=== PATIENT | male | born 1950 | race African-American/Black ===

== ENCOUNTER 2020-11-20 01:13 | Emergency (ER) | payer OTHER ==
[~2020-11-20] VITALS: Ht 188 cm; Wt 115.7 kg
[2020-11-20] MEDS ORDERED: amLODIPine BESYLATE 5 MG TAB PO ONE (01:30)
[2020-11-20] MEDS ORDERED: hydrALAZINE HCL 20 MG/ML VL IV ONE ×2 (01:45→02:30)
[2020-11-20] MEDS ORDERED: MORPHINE SULFATE 4 MG/ML SYR/VIAL IV ONE (02:15)
[2020-11-20] MEDS ORDERED: ONDANSETRON HCL 4 MG/2 ML VIAL IV ONE (02:15)
[2020-11-20 02:25] LABS: Basophils # (auto) 0 10 ^3/uL (0-0.2); Basophils % (auto) 0.3 % (0.0-2.0); Eosinophils # (auto) 0 10 ^3/uL (0-0.8); Eosinophils % (auto) 0.1 % (0.0-7.0); Hematocrit 44.1 % (41.0-53.0); Hemoglobin 14.8 g/dL (13.5-17.5); Lymphocytes % (auto) 13.2 % (10.0-50.0); Mean Corpuscular Hemoglobin 31.1 pg (28.0-32.0); Mean Corpuscular Hgb Conc. 33.6 g/dL (32.0-36.0); Mean Corpuscular Volume 92.4 fL (80.0-100.0); Monocytes # (auto) 0.2 10 ^3/uL (0-1.3); Monocytes % (auto) 2.3 % (0.0-12.0); Neutrophils # (auto) 6.2 10 ^3/uL (1.6-8.6); Neutrophils % (auto) 84.1 % (37.0-80.0); Platelet Count (auto) 168 10^3/uL (140-450); Red Blood Cells 4.77 10^6/uL (4.5-5.90); Red Cell Distribution Width 14.4 % (11.8-14.3); White Blood Cell 7.3 10^3/uL (4.4-10.8)
[2020-11-20 02:51] LABS: Alanine Aminotransferase 60 U/L (16-61); Albumin 4.2 g/dL (3.4-5.0); Anion Gap 12 (5-15); Aspartate Aminotransferase 46 U/L (15-37); BUN/Creatinine Ratio 13.7; Blood Urea Nitrogen 16 mg/dL (7-18); Calcium 8.8 mg/dL (8.5-10.1); Carbon Dioxide 21 mmol/L (21-32); Chloride 108 mmol/L (98-107); GFR African American 79 mL/min; GFR Non-African American 65 mL/min; Glucose 201 mg/dL (74-106); Lipase 529 U/L (73-393); Potassium 3.4 mmol/L (3.5-5.1); Sodium 141 mmol/L (136-145)
[2020-11-20 02:56] LABS: Alkaline Phosphatase 56 U/L (45-117); Bilirubin, Total 0.6 mg/dL (0.2-1.0)
[2020-11-20 04:45] LABS: Urine Amorphous Crystal FEW /hpf (None Seen); Urine Bacteria NONE SEEN /hpf (None Seen); Urine Blood TRACE /uL (Negative); Urine Specific Gravity 1.013 (1.001-1.035); Urine WBC 6 /hpf (0 - 3)
[2020-11-20] MEDS ORDERED: HYDROcodone-ACET 5/325MG TAB ONE (09:35)
[2020-11-20] MEDS ORDERED: HYDROcodone-ACET 5/325MG TAB PO ONE (09:45)
[2020-11-20 14:29] VITALS: BP 191/109
[2020-11-20] MEDS ORDERED: LABETALOL HCL 5 MG/ML 4ML SYRINGE IV ONE ×2 (14:42→14:45)
== END 2020-11-20 15:07 | disposition short-term general hospital (02) ==
LOC: ER 01:15
DX: K56.7 Ileus, unspecified (principal); R10.84 Generalized abdominal pain; R11.2 Nausea with vomiting, unspecified; I10 Essential (primary) hypertension; Z20.822 Contact with and (suspected) exposure to COVID-19
CPT/HCPCS: 36415; 74176; 80053; 81001; 83690; 84484; 85025; 87426; 93005; 96374; 96375; 96376; 99285; J0360; J2270; J2405; J3490